=== PATIENT | male | born 1985 | race Caucasian/White ===

== ENCOUNTER 2018-01-02 21:30 | Emergency (ER) | payer OTHER, BC ==
[2018-01-03] MEDS: SOD CHLORIDE 0.9% 1,000 ML IV (00:13)
[2018-01-03] MEDS: METOCLOPRAMIDE 10 MG INJ IV (00:13)
[2018-01-03] MEDS: DIPHENHYDRAMINE 50 MG INJ IV (00:13)
[2018-01-03] MEDS: KETOROLAC 30 MG INJ IV (00:13)
== END 2018-01-03 01:50 | disposition home or self-care (01) ==
LOC: FTE 21:30
DX: R51 Headache (principal)
CPT/HCPCS: 96374; 96375; 99284-25